=== PATIENT | male | born 2000 ===

== ENCOUNTER 2023-02-14 16:39 | Emergency (ER) | payer SELFPAY ==
[~2023-02-14] VITALS: Ht 178 cm; Wt 83.9 kg
[2023-02-14] MEDS ORDERED: NS IV 1000 ML 1,000 ML IV STA (17:08)
[2023-02-14] MEDS ORDERED: fentaNYL INJECTION 100 MCG/2 ML VIAL IVP STA (17:08)
--- NOTE | 2023-02-14 17:12 | ED Abdominal Pain ---
General Chief Complaint: Abdominal/GI Problems Stated Complaint: LOWER RT SIDE ABD PAIN Nursing Triage Note: PT AMB TO RM 3 WITH CC OF R LOWER ABD PAIN X1 WEEK. PT DENIES VOMITING AND DIARRHEA. Source of Information: Patient Exam Limitations: No Limitations (PEE SCOTT) History of Present Illness Date Seen by Provider: Feb 14, 2023 Time Seen by Provider: 17:10 Initial Comments Patient is a 22-year-old male who is speaking who presents ED with right lower quadrant abdominal pain. Pain has been ongoing and constant for the past week. Pain does not radiate. Described as sharp stabbing rates 9 out of 10. Nausea without vomiting or diarrhea. States he is having not as many frequent bowel movements. Noted the odor. Denies recent antibiotic use or bloody mucousy stools. Denies of any vomiting or diarrhea. Patient states pain intensifies when he attempts a bowel movement. Denies of any pain with urination frequent urination. No history of previous symptoms. Denies history of previous surgeries. Denies taking anything at home for pain. Denies fever, chills, chest pain, cough, shortness of breath, testicular pain or testicle swelling. (PEE SCOTT) Allergies and Home Medications Allergies Coded Allergies: No Known Drug Allergies (Unverified , 02/14/23) Patient Home Medication List Home Medication List Reviewed: Yes (PEE SCOTT) Hydrocodone/Acetaminophen (Hydrocodone-Acetamin 5-325 mg) 5 Mg-325 Mg Tablet, 1 TAB PO Q4H PRN for PAIN-MODERATE (5-7) Prescribed by: OMERO OSHEA on 02/14/23 175 Hydrocodone/Acetaminophen (Hydrocodone-Acetamin 5-325 mg) 5 Mg-325 Mg Tablet, 1 TAB PO Q4H PRN for PAIN-MODERATE (5-7) Prescribed by: OMERO OSHEA on 02/15/23 1646 Last Action: New Order Ondansetron (Ondansetron Odt) 4 Mg Tab.rapdis, 4 MG SL Q4H PRN for NAUSEA/VOMITING Prescribed by: OMERO OSHEA on 02/14/23 1757 Ondansetron (Ondansetron Odt) 4 Mg Tab.rapdis, 4 MG SL Q4H PRN for NAUSEA/V OMITING Prescribed by: OMERO OSHEA on 02/15/23 2994 Last Action: New Order Review of Systems Review of Systems Constitutional: No chills, No diaphoresis, No malaise, No weakness EENTM: No Double Vision, No Eye Pain Respiratory: Denies Cough, Denies Orthopnea Cardiovascular: Denies Chest Pain Gastrointestinal: Abdominal Pain; Denies Diarrhea; Nausea; Denies Vomiting Genitourinary: Denies Burning, Denies Discharge, Denies Drainage, Denies Frequ ency, Denies Flank Pain Musculoskeletal: No back pain Skin: No change in color, No change in hair/nails (PEE SCOTT) All Other Systems Reviewed Negative Unless Noted: Yes (PEE SCOTT) Past Keukfmf-Upascz-Gighqh Hx Patient Social History Tobacco Use?: No Substance use?: No Alcohol Use?: No (PEE SCOTT) Past Medical History Surgery/Hospitalization HX: DENIES (PEE SCOTT) Physical Exam Vital Signs Vital Signs - First Documented 02/14/23 17:00 Temp 36.8 Pulse 52 Resp 16 B/P (MAP) 141/80 (100) Pulse Ox 100 O2 Delivery Room Air (SERGIO GRADY MD) Vital Signs Capillary Refill : Less Than 3 Seconds (PEE SCOTT) Height/Weight/BMI Height: '" Weight: lbs. oz. kg; 26.00 BMI Method: General Appearance: WD/WN, no apparent distress HEENT: PERRL/EOMI, normal ENT inspection, TMs normal, pharynx normal Neck: non-tender, full range of motion, supple Respiratory: chest non-tender, lungs clear, normal breath sounds, no respiratory distress, no accessory muscle use Cardiovascular: regular rate, rhythm, no edema, no gallop, no JVD Gastrointestinal: normal bowel sounds, soft, no pulsatile mass, tenderness (Right lower quadrant tenderness.) Extremities: normal range of motion, non-tender, normal inspection, no pedal edema Back: normal inspection, no CVA tenderness, no vertebral tenderness Neurologic/Psychiatric: yarn tester II-XII nml as tested, no motor/sensory deficits, alert, normal mood/affect, oriented x 3 Skin: normal color, warm/dry (PEE SCOTT) Progress/Results/Core Measures Results/Orders Lab Results Laboratory Tests Test 02/14/23 17:15 02/14/23 17:53 Range/Units White Blood Count 14.2 H 4.3-11.0 10^3/uL Red Blood Count 5.88 H 4.30-5.52 10^6/uL Hemoglobin 17.3 13.3-17.7 g/dL Hematocrit 52 40-54 % Mean Corpuscular Volume 88 80-99 fL Mean Corpuscular Hemoglobin 29 25-34 pg Mean Corpuscular Hemoglobin Concent 34 32-36 g/dL Red Cell Distribution Width 13.1 10.0-14.5 % Platelet Count 265 130-400 10^3/uL Mean Platelet Volume 11.9 9.0-12.2 fL Immature Granulocyte % (Auto) 1 % Neutrophils (%) (Auto) 76 H 42-75 % Lymphocytes (%) (Auto) 14 12-44 % Monocytes (%) (Auto) 9 0-12 % Eosinophils (%) (Auto) 1 0-10 % Basophils (%) (Auto) 0 0-10 % Neutrophils # (Auto) 10.8 H 1.8-7.8 10^3/uL Lymphocytes # (Auto) 2.0 1.0-4.0 10^3/uL Monocytes # (Auto) 1.3 H 0.0-1.0 10^3/uL Eosinophils # (Auto) 0.1 0.0-0.3 10^3/uL Basophils # (Auto) 0.0 0.0-0.1 10^3/uL Immature Granulocyte # (Auto) 0.1 0.0-0.1 10^3/uL Neutrophils % (Manual) 88 % Lymphocytes % (Manual) 8 % Monocytes % (Manual) 3 % Eosinophils % (Manual) 1 % Blood Morphology Comment NORMAL Sodium Level 137 135-145 MMOL/L Potassium Level 4.0 3.6-5.0 MMOL/L Chloride Level 106 98-107 MMOL/L Carbon Dioxide Level 20 L 21-32 MMOL/L Anion Gap 11 5-14 MMOL/L Blood Urea Nitrogen 12 7-18 MG/DL Creatinine 0.87 0.60-1.30 MG/DL Estimat Glomerular Filtration Rate 125 BUN/Creatinine Ratio 14 Glucose Level 96 70-105 MG/DL Calcium Level 9.1 8.5-10.1 MG/DL Corrected Calcium 8.8 8.5-10.1 MG/DL Total Bilirubin 0.8 0.1-1.0 MG/DL Aspartate Amino Transf (AST/SGOT) 48 H 5-34 U/L Alanine Aminotransferase (ALT/SGPT) 122 H 0-55 U/L Alkaline Phosphatase 90 40-136 U/L Total Protein 7.2 6.4-8.2 GM/DL Albumin 4.4 3.2-4.5 GM/DL Lipase 16 8-78 U/L Urine Color YELLOW Urine Clarity CLEAR Urine pH 6.0 5-9 Urine Specific [place] 1.025 H 1.016-1.022 Urine Protein NEGATIVE NEGATIVE Urine Glucose (UA) NEGATIVE NEGATIVE Urine Ketones NEGATIVE NEGATIVE Urine Nitrite NEGATIVE NEGATIVE Urine Bilirubin NEGATIVE NEGATIVE Urine Urobilinogen 0.2 < = 1.0 MG/DL Urine Leukocyte Esterase NEGATIVE NEGATIVE Urine RBC (Auto) TRACE H NEGATIVE Urine RBC NONE /HPF Urine WBC NONE /HPF Urine Squamous Epithelial Cells RARE /HPF Urine Crystals NONE /LPF Urine Bacteria NEGATIVE /HPF Urine Casts NONE /LPF Urine Mucus NEGATIVE /LPF Urine Culture Indicated NO (SERGIO GRADY MD) Vital Signs/I&O 02/14/23 02/14/23 17:00 19:06 Temp 36.8 Pulse 52 54 Resp 16 16 B/P (MAP) 141/80 (100) 140/83 Pulse Ox 100 99 O2 Delivery Room Air Room Air (SERGIO GRADY MD) Blood Pressure Mean: 100 Departure Communication (PCP) Differential diagnosis, appendicitis, colitis, urolithiasis, cystitis. Not concern for sexual transmitted infections. No penile discharge, bloody urine or frequent urination. Tenderness to right lower quadrant continuous pain for the past week. Afebrile no vomiting or diarrhea. Denies any specific injury. Does lift heavy objects. No palpable hernia. Patient without any testicle pain or testicle swelling. Urinalysis did showed trace red blood cells. White blood count 14. Chemistry grossly unremarkable besides slight elevated AST and ALT 48 and 122 respectively. Patient received fentanyl and Toradol with improvement of pain. Was given a liter of fluid Zofran. CT abdomen pelvis shows no acute abnormality in the abdomen or pelvis. Nonobstructing 0.6 cm right renal calculus without hydronephrosis. Potentially could be causing patient pain or more muscular. Denies of any hard stools. Denies history of constipation. Since patient's pain is improving at this time will discharge with strict return precautions. Discharged with few days worth of pain medication and Zofran for nausea. Recommend follow-up with your PCP in 2 to 3 days for reevaluation. Recommend stretching the abdominal wall. Recommend staying hydrated. If any worsening symptoms such as fever, severe pain to return back to ED. Does not appear to be surgical at this time. Patient has no other complaints. (PEE SCOTT) Impression Primary Impression: Nephrolithiasis Disposition: HOME, SELF-CARE Condition: Stable Departure-Patient Inst. Decision time for Depature: 17:55 (PEE SCOTT) Referrals: [facility] [place] Patient Instructions: Kidney Stone, Adult ED Add. Discharge Instructions: Recommend rest, drink plenty of fluids, Zofran for nausea. Take pain medication as needed. Recommend taking a laxative with the hydrocodone. All discharge instructions reviewed with patient and/or family. Voiced understanding. Scripts Hydrocodone/Acetaminophen (Hydrocodone-Acetamin 5-325 mg) 5 Mg-325 Mg Tablet 1 TAB PO Q4H PRN for PAIN-MODERATE (5-7), #8 TAB Prov: PEE SCOTT 02/15/23 Ondansetron (Ondansetron Odt) 4 Mg Tab.rapdis 4 MG SL Q4H PRN for NAUSEA/VOMITING, #6 TAB Prov: PEE SCOTT 02/15/23 Hydrocodone/Acetaminophen (Hydrocodone-Acetamin 5-325 mg) 5 Mg-325 Mg Tablet 1 TAB PO Q4H PRN for PAIN-MODERATE (5-7), #8 TAB Prov: PEE SCOTT 02/14/23 Ondansetron (Ondansetron Odt) 4 Mg Tab.rapdis 4 MG SL Q4H PRN for NAUSEA/VOMITING, #8 TAB Prov: PEE SCOTT 02/14/23 Work/School Note: Work Release Form Date Seen in the Emergency Department: Feb 14, 2023 Return to Work: Feb 17, 2023 ATTENDING PHYSICIAN NOTE: I was physically present as attending physician in the emergency department during the care of this patient, but I was not directly involved in the decision making or delivery of care for this patient. (SERGIO GRADY MD) PEE SCOTT Feb 14, 2023 17:12 SERGIO GRADY MD Feb 15, 2023 18:52
[2023-02-14 17:30] LABS: BASOPHILS % (AUTO) 0 % (0-10); EOSINOPHILS # (AUTO) 0.1 10^3/uL (0.0-0.3); EOSINOPHILS % (AUTO) 1 % (0-10); HEMATOCRIT 52 % (40-54); HEMOGLOBIN 17.3 g/dL (13.3-17.7); LYMPHOCYTES % (AUTO) 14 % (12-44); MEAN CORPUSCULAR HEMOGLOBIN 29 pg (25-34); MEAN CORPUSCULAR HGB CONC 34 g/dL (32-36); MEAN CORPUSCULAR VOLUME 88 fL (80-99); MEAN PLATELET VOLUME 11.9 fL (9.0-12.2); MONOCYTES # (AUTO) 1.3 10^3/uL (0.0-1.0); MONOCYTES % (AUTO) 9 % (0-12); NEUTROPHILS # (AUTO) 10.8 10^3/uL (1.8-7.8); NEUTROPHILS % (AUTO) 76 % (42-75); PLATELET COUNT 265 10^3/uL (130-400); WHITE BLOOD COUNT 14.2 10^3/uL (4.3-11.0)
[2023-02-14] MEDS ORDERED: HOLD METFORMIN - RECEIVED CONTRAST 20 ML VIAL IV SCH (17:30)
[2023-02-14] MEDS ORDERED: NS 100 ML (IVPB) BAG IV ONE (17:30)
[2023-02-14] MEDS ORDERED: IOHEXOL 350 MG/ML 100 ML (OMNIPAQUE 350) VIAL IV ONE (17:30)
[2023-02-14 17:37] LABS: ALBUMIN 4.4 GM/DL (3.2-4.5)
[2023-02-14 17:39] LABS: CALCIUM 9.1 MG/DL (8.5-10.1)
[2023-02-14 17:40] LABS: TOTAL PROTEIN 7.2 GM/DL (6.4-8.2)
[2023-02-14 17:42] LABS: BILIRUBIN,TOTAL 0.8 MG/DL (0.1-1.0)
--- NOTE | 2023-02-14 17:43 | Diagnostic Imaging Report ---
EXAMINATION: CT abdomen and pelvis with intravenous contrast. TECHNIQUE: Multiple contiguous axial images were obtained through the abdomen and pelvis after the uneventful administration of intravenous contrast. All CT scans use one or more of the following dose optimizing techniques: automated exposure control, MA and/or KvP adjustment based on patient size and exam type or iterative reconstruction. HISTORY: rlq abd pain COMPARISON: None available. FINDINGS: Lung bases: The lung bases are clear. Solid organs: The liver is normal without focal lesion. The gallbladder is normal. There is no biliary ductal dilation. Pancreas is normal. Spleen is normal. Adrenal glands are normal. There is a nonobstructing 0.6 cm right renal calculus. No hydronephrosis. Bowel: The stomach and small bowel are normal without obstruction. The colon is normal. The appendix is normal. Peritoneum: There is no intraperitoneal free fluid or free air. No suspicious lymphadenopathy. Vasculature: Normal without aneurysm. Musculoskeletal: No suspicious osseous lesion or compression fracture. Pelvis: The prostate gland is normal. The urinary bladder is normal. IMPRESSION: 1. No acute abnormality in the abdomen or pelvis. 2. A nonobstructing 0.6 cm right renal calculus without hydronephrosis. Dictated by: Dictated on workstation # [id number]
[2023-02-14 17:44] LABS: CREATININE SERUM 0.87 MG/DL (0.60-1.30)
[2023-02-14] MEDS ORDERED: ONDA4TAB11 SL (17:57)
[2023-02-14] MEDS ORDERED: ACHD5005 PO (17:57)
[2023-02-14 18:09] LABS: BACTERIA,URINE NEGATIVE /HPF; BILIRUBIN,URINE NEGATIVE (NEGATIVE); CLARITY,URINE CLEAR; COLOR,URINE YELLOW; GLUCOSE, URINE (UA) NEGATIVE (NEGATIVE); KETONES,URINE NEGATIVE (NEGATIVE); LEUKOCYTE ESTERASE ,URINE NEGATIVE (NEGATIVE); NITRITE,URINE NEGATIVE (NEGATIVE); PROTEIN,URINE NEGATIVE (NEGATIVE); SQUAMOUS EPITHELIAL CELL,UR RARE /HPF
[2023-02-14 18:15] LABS: EOSINOPHILS % (MANUAL) 1 %; LYMPHOCYTES % (MANUAL) 8 %; MONOCYTES % (MANUAL) 3 %; NEUTROPHILS % (MANUAL) 88 %; RBC MORPH NORMAL
[2023-02-14] MEDS ORDERED: KETOROLAC INJ 30 MG/ML VIAL IVP ONE (19:00)
[2023-02-14 19:06] VITALS: BP 140/83
[2023-02-15] MEDS ORDERED: ACHD5005 PO (16:45)
[2023-02-15] MEDS ORDERED: ONDA4TAB11 SL (16:45)
== END 2023-02-14 19:06 | disposition home or self-care (01) ==
LOC: ER 16:48
DX: N20.0 Calculus of kidney (principal)
CPT/HCPCS: 36415; 74177; 80053; 81000; 83690; 85007; 85027

== ENCOUNTER 2023-04-08 12:29 | Emergency (ER) | payer SELFPAY ==
[~2023-04-08] VITALS: Ht 178 cm; Wt 81.6 kg
[~2023-04-08 12:29] MED LIST: ACHD5005 PO; ONDA4TAB11 SL
--- NOTE | 2023-04-08 12:58 | ED Abdominal Pain ---
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 At that time he was diagnosed with a kidney stone. He reports that he has been vomiting approximately 4 times a day since then. He reports a small amount of bright red blood in his vomit. Also reports that he has had black stools since December. He reports that he has a small bowel movement every day. He reports that his stools have been loose. He states that he feels as though he has not had a normal bowel movement since December. He reports he has had fevers, highest was 100.2. States that he has been taking Tylenol for the fever. Reports that he has not been eating as well. He denies dysuria. He denies taking ibuprofen or aspirin. Denies alcohol use. Denies taking Pepto-Bismol. He reports that he has been having muscle cramping in bilateral lower extremities. Allergies and Home Medications Allergies Coded Allergies: No Known Drug Allergies (Unverified , 02/14/23) Patient Home Medication List Home Medication List Reviewed: Yes Amoxicillin/Potassium Clav (Amox Tr-K Clv 875-125 mg Tab) 875 Mg-125 Mg Tablet, 1 EACH PO BID Prescribed by: Helen Steven on 04/08/23 1442 Hydrocodone/Acetaminophen (Hydrocodone-Acetamin 5-325 mg) 5 Mg-325 Mg Tablet, 1 TAB PO Q4H PRN for PAIN-MODERATE (5-7) Prescribed by: OMERO OSHEA on 02/14/23 1757 Hydrocodone/Acetaminophen (Hydrocodone-Acetamin 5-325 mg) 5 Mg-325 Mg Tablet, 1 TAB PO Q4H PRN for PAIN-MODERATE (5-7) Prescribed by: OMERO OSHEA on 02/15/23 1646 Ondansetron (Ondansetron Odt) 4 Mg Tab.rapdis, 4 MG SL Q4H PRN for NAUSEA/VOMITING Prescribed by: OMERO OSHEA on 02/14/23 175 Ondansetron (Ondansetron Odt) 4 Mg Tab.rapdis, 4 MG SL Q4H PRN for NAUSEA /VOMITING Prescribed by: OMERO OSHEA on 02/15/23 1645 Ondansetron (Ondansetron Odt) 4 Mg Tab.rapdis, 4 MG SL Q4H PRN for NAUSEA/VOMITING Prescribed by: Helen Steven on 04/08/23 1442 Tramadol HCl (Tramadol HCl) 50 Mg Tablet, 50 MG PO Q6H Prescribed by: Helen Steven on 04/08/23 1442 Review of Systems Review of Systems Constitutional: see HPI Past Evtlrdq-Dzalwd-Wzsudo Hx Past Medical History Surgery/Hospitalization HX: DENIES Physical Exam Vital Signs Vital Signs - First Documented 04/08/23 12:38 Temp 37.0 Pulse 65 Resp 20 B/P (MAP) 140/80 (100) Pulse Ox 99 O2 Delivery Nasal Cannula Capillary Refill : Height/Weight/BMI Height: '" Weight: lbs. oz. kg; 26.00 BMI Method: General Appearance: WD/WN, no apparent distress Neck: supple, normal inspection Respiratory: lungs clear, normal breath sounds, no respiratory distress, no accessory muscle use Cardiovascular: regular rate, rhythm Gastrointestinal: normal bowel sounds, soft; No guarding, No rebound; tenderness (Left lower quadrant) Rectal: normal exam, normal rectal tone; No hemorrhoids Extremities: normal range of motion, normal inspection Back: CVA tenderness (R), CVA tenderness (L) Neurologic/Psychiatric: alert, normal mood/affect Skin: normal color, warm/dry Progress/Results/Core Measures Results/Orders Lab Results Laboratory Tests Test 04/08/23 12:57 04/08/23 13:00 Range/Units White Blood Count 9.6 4.3-11.0 10^3/uL Red Blood Count 6.03 H 4.30-5.52 10^6/uL Hemoglobin 17.5 13.3-17.7 g/dL Hematocrit 52 40-54 % Mean Corpuscular Volume 86 80-99 fL Mean Corpuscular Hemoglobin 29 25-34 pg Mean Corpuscular Hemoglobin Concent 34 32-36 g/dL Red Cell Distribution Width 12.4 10.0-14.5 % Platelet Count 276 130-400 10^3/uL Mean Platelet Volume 12.0 9.0-12.2 fL Immature Granulocyte % (Auto) 0 % Neutrophils (%) (Auto) 69 42-75 % Lymphocytes (%) (Auto) 19 12-44 % Monocytes (%) (Auto) 9 0-12 % Eosinophils (%) (Auto) 3 0-10 % Basophils (%) (Auto) 0 0-10 % Neutrophils # (Auto) 6.6 1.8-7.8 10^3/uL Lymphocytes # (Auto) 1.8 1.0-4.0 10^3/uL Monocytes # (Auto) 0.8 0.0-1.0 10^3/uL Eosinophils # (Auto) 0.3 0.0-0.3 10^3/uL Basophils # (Auto) 0.0 0.0-0.1 10^3/uL Immature Granulocyte # (Auto) 0.0 0.0-0.1 10^3/uL Sodium Level 137 135-145 MMOL/L Potassium Level 3.7 3.6-5.0 MMOL/L Chloride Level 105 98-107 MMOL/L Carbon Dioxide Level 22 21-32 MMOL/L Anion Gap 10 5-14 MMOL/L Blood Urea Nitrogen 8 7-18 MG/DL Creatinine 0.86 0.60-1.30 MG/DL Estimat Glomerular Filtration Rate 126 BUN/Creatinine Ratio 9 Glucose Level 109 H 70-105 MG/DL Calcium Level 9.7 8.5-10.1 MG/DL Corrected Calcium 8.5-10.1 MG/DL Total Bilirubin 1.2 H 0.1-1.0 MG/DL Aspartate Amino Transf (AST/SGOT) 24 5-34 U/L Alanine Aminotransferase (ALT/SGPT) 56 H 0-55 U/L Alkaline Phosphatase 70 40-136 U/L Total Protein 7.6 6.4-8.2 GM/DL Albumin 4.7 H 3.2-4.5 GM/DL Lipase 18 8-78 U/L Serum Alcohol < 10 <10 MG/DL Urine Color YELLOW Urine Clarity CLEAR Urine pH 6.5 5-9 Urine Specific [place] 1.010 L 1.016-1.022 Urine Protein NEGATIVE NEGATIVE Urine Glucose (UA) NEGATIVE NEGATIVE Urine Ketones NEGATIVE NEGATIVE Urine Nitrite NEGATIVE NEGATIVE Urine Bilirubin NEGATIVE NEGATIVE Urine Urobilinogen 0.2 < = 1.0 MG/DL Urine Leukocyte Esterase NEGATIVE NEGATIVE Urine RBC (Auto) TRACE H NEGATIVE Urine RBC RARE /HPF Urine WBC NONE /HPF Urine Crystals NONE /LPF Urine Calcium Oxalate Crystals /LPF Urine Bacteria NEGATIVE /HPF Urine Casts NONE /LPF Urine Mucus NEGATIVE /LPF Urine Culture Indicated NO Urine Opiates Screen NEGATIVE NEGATIVE Urine Oxycodone Screen NEGATIVE NEGATIVE Urine Methadone Screen NEGATIVE NEGATIVE Urine Barbiturates Screen NEGATIVE NEGATIVE Ur Tricyclic Antidepressants Screen NEGATIVE NEGATIVE Urine Phencyclidine Screen NEGATIVE NEGATIVE Urine Amphetamines Screen NEGATIVE NEGATIVE Urine Methamphetamines Screen NEGATIVE NEGATIVE Urine Benzodiazepines Screen NEGATIVE NEGATIVE Urine Cocaine Screen NEGATIVE NEGATIVE Urine Cannabinoids Screen NEGATIVE NEGATIVE My Orders Orders - HELEN ALEXANDER R EXPLOSIVE OPERATOR FUSE Ua Culture If Indicated (04/08/23 12:35) Comprehensive Metabolic Panel (04/08/23 12:50) Lipase (04/08/23 12:50) Ed Iv/Invasive Line Start (04/08/23 12:50) Cbc And Automated Diff (04/08/23 12:50) Lactated Ringers 1,000 Ml (Lactated Ring (04/08/23 13:00) Fentanyl Injection (Fentanyl Injection (04/08/23 13:00) Fecal Occult Bedside (04/08/23 12:50) Ondansetron Injection (Ondansetron Inj (04/08/23 13:15) Drug Screen Stat (Urine) (04/08/23 13:02) Alcohol (04/08/23 13:02) Ct Abdomen/Pelvis W (04/08/23 13:11) Iohexol Injection (Omnipaque 350 Mg/Ml 1 (04/08/23 13:30) Received Contrast (Hold Metformin- Contr (04/08/23 13:30) Ns (Ivpb) 100 Ml (Sodium Chloride 0.9% 1 (04/08/23 13:30) Fentanyl Injection (Fentanyl Injection (04/08/23 14:30) Amoxicillin/Clavulanate Tablet (Amoxicil (04/08/23 14:30) Medications Given in ED Current Medications Medications Dose Ordered Sig/Amalia Route Start Time Stop Time Status Last Admin Dose Admin Amoxicillin/ Clavulanate Potassium 875 mg ONCE ONCE PO 04/08/23 14:30 04/08/23 14:32 DC 04/08/23 14:45 875 MG Fentanyl Citrate 50 mcg ONCE ONCE IVP 04/08/23 13:00 04/08/23 13:01 DC 04/08/23 13:26 50 MCG Fentanyl Citrate 75 mcg ONCE ONCE IVP 04/08/23 14:30 04/08/23 14:32 DC 04/08/23 14:45 75 MCG Iohexol 100 ml ONCE ONCE IV 04/08/23 13:30 04/08/23 13:31 DC 04/08/23 13:39 80 ML Lactated Ringer's 1,000 ml @ 0 mls/hr Q0M ONCE IV 04/08/23 13:00 04/08/23 13:01 DC 04/08/23 13:25 0 MLS/HR Ondansetron HCl 4 mg ONCE ONCE IVP 04/08/23 13:15 04/08/23 13:16 DC 04/08/23 13:26 4 MG Sodium Chloride 100 ml ONCE ONCE IV 04/08/23 13:30 04/08/23 13:31 DC 04/08/23 13:39 80 ML Vital Signs/I&O 04/08/23 12:38 Temp 37.0 Pulse 65 Resp 20 B/P (MAP) 140/80 (100) Pulse Ox 99 O2 Delivery Nasal Cannula Progress Progress Note : Progress Note Patient seen and evaluated, resting comfortably in bed, no acute distress. Based on exam and symptoms, workup initiated including CBC, CMP, lipase, UA, fecal occult. Lactated Ringer's, fentanyl, and Zofran ordered. Digital rectal exam performed, no internal or external hemorrhoids noted, was unable to obtain a stool sample. Patient went to the restroom to try to have a bowel movement. He was unable to have a bowel movement, but when he wiped there was a small amount of bright red blood, and green-colored stool. [address] reviewed. CBC shows elevated RBC 6.03, otherwise grossly normal. CMP shows slightly elevated total bilirubin of 1.2, slightly elevated ALT 56, this is improved from previous labs. Albumin slightly elevated 4.7. Lipase normal. Urinalysis shows trace RBCs, negative for infection. Urine drug screen negative. Alcohol level negative. CT abdomen pelvis shows decompressed appearance of wall thickening of rectum all the way to the splenic flexure, this may be related to contraction but could also be colitis. Few loops of prominent jejunum overlying the left abdomen with fecalization. Slightly increased compar ed to prior study. Localized ileus cannot be excluded, early small bowel obstruction is less likely. There are findings of mesenteric adenitis. Also noted is low-density throughout the liver which could be fatty infiltrate. Results discussed with patient. Symptoms could be related to colitis or mesenteric adenitis. Will discharge with prescription for Augmentin, Zofran, and pain medication. Patient requesting more pain medication at this time. Fentanyl has been ordered. First dose of Augmentin has also been ordered. Patient instructed to follow-up with Dr. Donaldson due to blood in stool. Patient is stable for discharge. Discharge instructions and return precautions provided. Departure Impression Primary Impression: Mesenteric adenitis Additional Impression: Colitis Disposition: 01 HOME, SELF-CARE Condition: Stable Departure-Patient Inst. Decision time for Depature: 14:36 Referrals: VEDA DONALDSON DO Patient Instructions: Colitis (DC) Add. Discharge Instructions: Complete el tratamiento completo de Augmentin segn lo prescrito, no deje de tomarlo incluso si comienza a sentirse mejor. [place] ondansetrn cada 4 horas segn sea necesario para las nuseas y los vmitos. Colcalo debajo de tu lengua y eva que se disuelva. Puede causar estreimiento. Tmalo slo cuando lo necesites. [place] tramadol cada 6 horas segn sea necesario para el dolor. Puede que le d sueo. Tambin puede causar estreimiento. Tmalo slo cuando sea necesario. Tambin puede naif Tylenol 1000 mg cada 8 horas segn sea necesario para el dolor. Seguimiento con el odalys [place], con respecto a la liza en las heces. Llame a barnes oficina el lunes para programar roshan ab de seguimiento. Tambin renetta un seguimiento con barnes proveedor de atencin primaria. Regrese si presenta cualquier sntoma nuevo, preocupante o que empeore. Complete full course of Augmentin as prescribed, do not stop taking it even if you begin to feel better. Take ondansetron every 4 hours as needed for nausea and vomiting. Place it under your tongue and let it dissolve. It may cause constipation. Only take it when you need it. Take tramadol every 6 hours as needed for pain. It may make you sleepy. It may also cause constipation. Only take it when needed. You may also take Tylenol 1000 mg every 8 hours as needed for pain. Follow-up with Dr. Donaldson, surgery, regarding the blood in your stool. Call his office on Monday to schedule a follow-up appointment. Follow-up with your primary care provider as well. Return for any new, concerning, or worsening symptoms. Scripts Tramadol HCl (Tramadol HCl) 50 Mg Tablet 50 MG PO Q6H, #15 TAB 0 Refills Prov: HELEN ALEXANDER APRN 04/08/23 Ondansetron (Ondansetron Odt) 4 Mg Tab.rapdis 4 MG SL Q4H PRN for NAUSEA/VOMITING, #15 TAB 0 Refills Prov: HELEN ALEXANDER APRN 04/08/23 Amoxicillin/Potassium Clav (Amox Tr-K Clv 875-125 mg Tab) 875 Mg-125 Mg Tablet 1 EACH PO BID for 10 Days, #19 TAB 0 Refills Prov: HELEN ALEXANDER APRN 04/08/23 Copy Copies To 1: [facility]/HELEN BAHENA APRN Apr 08, 2023 12:58
[2023-04-08] MEDS ORDERED: fentaNYL INJECTION 100 MCG/2 ML VIAL IVP ONE ×2 (13:00→14:30)
[2023-04-08] MEDS ORDERED: LACTATED RINGERS 1,000 ML 1,000 ML IV ONE (13:00)
[2023-04-08 13:04] LABS: BASOPHILS % (AUTO) 0 % (0-10); EOSINOPHILS # (AUTO) 0.3 10^3/uL (0.0-0.3); EOSINOPHILS % (AUTO) 3 % (0-10); HEMATOCRIT 52 % (40-54); HEMOGLOBIN 17.5 g/dL (13.3-17.7); LYMPHOCYTES # (AUTO) 1.8 10^3/uL (1.0-4.0); LYMPHOCYTES % (AUTO) 19 % (12-44); MEAN CORPUSCULAR HEMOGLOBIN 29 pg (25-34); MEAN CORPUSCULAR HGB CONC 34 g/dL (32-36); MEAN CORPUSCULAR VOLUME 86 fL (80-99); MONOCYTES # (AUTO) 0.8 10^3/uL (0.0-1.0); MONOCYTES % (AUTO) 9 % (0-12); NEUTROPHILS # (AUTO) 6.6 10^3/uL (1.8-7.8); NEUTROPHILS % (AUTO) 69 % (42-75); PLATELET COUNT 276 10^3/uL (130-400); WHITE BLOOD COUNT 9.6 10^3/uL (4.3-11.0)
[2023-04-08] MEDS ORDERED: ONDANSETRON INJECTION 4 MG/2 ML (SDV) IVP ONE (13:15)
[2023-04-08 13:16] LABS: ALBUMIN 4.7 GM/DL (3.2-4.5); CHLORIDE 105 MMOL/L (98-107); POTASSIUM 3.7 MMOL/L (3.6-5.0); SODIUM 137 MMOL/L (135-145)
[2023-04-08 13:17] LABS: CALCIUM 9.7 MG/DL (8.5-10.1)
[2023-04-08 13:18] LABS: GLUCOSE 109 MG/DL (70-105); TOTAL PROTEIN 7.6 GM/DL (6.4-8.2)
[2023-04-08 13:19] LABS: CARBON DIOXIDE 22 MMOL/L (21-32)
[2023-04-08 13:20] LABS: BILIRUBIN,TOTAL 1.2 MG/DL (0.1-1.0)
[2023-04-08 13:22] LABS: ALKALINE PHOSPHATASE 70 U/L (40-136); CREATININE SERUM 0.86 MG/DL (0.60-1.30); GFR ESTIMATED 126
[2023-04-08 13:23] LABS: BUN/CREATININE RATIO 9
[2023-04-08 13:25] LABS: AMPHETAMINE SCREEN, URINE NEGATIVE (NEGATIVE); BARBITURATE SCREEN URINE NEGATIVE (NEGATIVE); CANNABINOID SCREEN, URINE NEGATIVE (NEGATIVE); CLARITY,URINE CLEAR; COCAINE SCREEN URINE NEGATIVE (NEGATIVE); COLOR,URINE YELLOW; GLUCOSE, URINE (UA) NEGATIVE (NEGATIVE); KETONES,URINE NEGATIVE (NEGATIVE); METHADONE STAT NEGATIVE (NEGATIVE); OPIATE SCREEN URINE NEGATIVE (NEGATIVE); OXYCODONE STAT NEGATIVE (NEGATIVE); PH,URINE 6.5 (5-9); PROTEIN,URINE NEGATIVE (NEGATIVE); TRICYCLIC ANTIDEPRESSANTS SCRE NEGATIVE (NEGATIVE)
[2023-04-08 13:25] LABS: ALANINE AMINOTRANSFERASE 56 U/L (0-55); LIPASE 18 U/L (8-78)
[2023-04-08 13:26] LABS: BACTERIA,URINE NEGATIVE /HPF; BILIRUBIN,URINE NEGATIVE (NEGATIVE); LEUKOCYTE ESTERASE ,URINE NEGATIVE (NEGATIVE); NITRITE,URINE NEGATIVE (NEGATIVE); RBC,URINE RARE /HPF
[2023-04-08] MEDS ORDERED: IOHEXOL 350 MG/ML 100 ML (OMNIPAQUE 350) VIAL IV ONE (13:30)
[2023-04-08] MEDS ORDERED: HOLD METFORMIN - RECEIVED CONTRAST 20 ML VIAL IV SCH (13:30)
[2023-04-08] MEDS ORDERED: NS 100 ML (IVPB) BAG IV ONE (13:30)
--- NOTE | 2023-04-08 13:57 | Diagnostic Imaging Report ---
CLINICAL INDICATION: Patient complains of left lower quadrant abdominal pain. EXAM: Axial CT scan of the abdomen and pelvis performed with 80 cc of Omnipaque 350 IV contrast. Sagittal and coronal reformatted images were created. Auto Exposure Controls were utilized during the CT exam to meet ALARA standards for radiation dose reduction. COMPARISON: CT scan of the abdomen and pelvis with contrast dated 02/14/2023. FINDINGS: The lung bases are clear. The visualized bony structures are unremarkable. Again seen is diffuse low-density throughout the liver which may be related to diffuse fatty infiltration. The liver is otherwise unremarkable. The spleen, pancreas, gallbladder, and adrenal glands are unremarkable. There is no intrahepatic or extrahepatic ductal dilation. There is a 7 mm nonobstructive stone involving the right kidney. Both kidneys are otherwise unremarkable. There is no hydronephrosis. There are no stones in the ureters. The bladder is fluid-filled and otherwise unremarkable. The prostate gland is unremarkable. The appendix is unremarkable. There is wall thickening and a decompressed appearance of the left splenic flexure, descending colon, sigmoid colon, and rectum which is nonspecific. There is no intestinal obstruction. There is fecalization seen involving some mildly distended loops of jejunum overlying the left abdomen measuring up to 2.7 cm in width. The intestines distal to this area are smaller in caliber. Patient was also noted to have minimally distended jejunum in this area on the prior CT but not as much as today's exam. There is no intra-abdominal free air or free fluid. There are multiple mesenteric and pericecal lymph nodes which are subcentimeter in short axis. The extraabdominal and extrapelvic soft tissue structures are unremarkable. IMPRESSION: 1: There is a decompressed appearance of wall thickening seen from the rectum all the way to the splenic flexure. This may be related to contraction but colitis could not be completely excluded. 2: There are a few loops of prominent jejunum overlying the left abdomen with fecalization. This appearance is slightly increased compared to the prior study. A localized ileus could not be excluded. An early small bowel obstruction may be less likely. Serial x-rays of the abdomen may help better evaluate for interval change. 3: There are findings which can be seen with mesenteric adenitis. 4: Again seen is diffuse low-density throughout the liver, concerning for fatty infiltration. Dictated by: Dictated on workstation # [id number]
[2023-04-08] MEDS ORDERED: AMOXICILLIN/Clavulanate 875 MG TABLET PO ONE (14:30)
[2023-04-08] MEDS ORDERED: TRAM50TA3 PO (14:42)
[2023-04-08] MEDS ORDERED: AMOX1TAB12 PO (14:42)
[2023-04-08] MEDS ORDERED: ONDA4TAB11 SL (14:42)
[2023-04-08 15:10] VITALS: BP 122/64
== END 2023-04-08 15:15 | disposition home or self-care (01) ==
LOC: EDUNIT# 12:29 → ER 12:31
DX: I88.0 Nonspecific mesenteric lymphadenitis (principal); K52.9 Noninfective gastroenteritis and colitis, unspecified
CPT/HCPCS: 74177; 80053; 80306; 81000; 82274; 83690; 85025; 99284; G0480; 36415; 80320

== ENCOUNTER 2023-04-14 17:39 | Emergency (ER) | payer SELFPAY ==
[~2023-04-14] VITALS: Ht 172.7 cm; Wt 80.0 kg
[~2023-04-14 17:39] MED LIST changes: +AMOX1TAB12 PO; +TRAM50TA3 PO
--- NOTE | 2023-04-14 18:13 | ED Abdominal Pain ---
General Chief Complaint: Abdominal/GI Problems Stated Complaint: VOMITTING, INFECTION Nursing Triage Note: PATIENT C/O ABD. PAIN WITH VOMITING THAT STARTED 2 MTHS AGO. PATIENT STATES HIS PAIN HAS GOTTEN WORSE AND STATES THE PAIN INCREASED 3 DAYS AGO. PATIENT DENIES ANY BLOOD IN HIS STOOL. PATIENT STATES HE HAS AN APT. WITH DR. DONALDSON THIS COMING MONDAY. PATIENT STATES HE WAS SEEN HERE FOR THIS COMPLAINT AND WAS DX. WITH COLITIS AND MESENTERIC ADENITIS. PATIENT STATES HE COMPLETED HIS PRESCRIBED ANTIBIOTICS. 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 NO BLOOD IN STOOLS. NO STOOL TODAY, PASSED SOME MUCOUS-Y STOOL YESTERDAY HAS HAD SUBJECTIVE FEVER HAS HAD DECREASED URINE OUTPUT THE LAST 2 DAYS, VOIDED X 3 TODAY, BUT SMALL AMOUNTS HAS HAD SOME WATER TODAY, NO FOOD. HAD A LITTLE BIT OF FOOD YESTERDAY, BUT EATING CAUSES INCREASED PAIN HAS NOT BEEN ABLE TO SLEEP THE LAST 2 NIGHTS BECAUSE OF PAIN SEEN HERE 04/08/23 FOR THIS PROBLEM, DX WITH COLITIS AND MESENTERIC ADENITIS AND PRESCRIBED AUGMENTIN, ZOFRAN AND TRAMADOL HE IS OUT OF ALL MEDICATIONS HE HAS AN APPOINTMENT WITH DR. DONALDSON ON Monday04/18/23 FOR THIS PROBLEM SEEN HERE 02/14/23 FOR LLQ PAIN, CT SCAN SHOWED RIGHT INTRARENAL CALCULUS, OTHERWISE NO ABNORMAL FINDINGS ON CT OR IN LAB AT THAT TIME. NO PRIOR ABDOMINAL SURGERIES OR GI PROBLEMS NO MEDICAL PROBLEMS OR DAILY MEDICATIONS NO SMOKING, ALCOHOL OR DRUG USE NO RECENT TRAVEL, NO SUSPICIOUS FOODS PCP: NONE Allergies and Home Medications Allergies Coded Allergies: No Known Drug Allergies (Unverified , 02/14/23) Patient Home Medication List Home Medication List Reviewed: Yes Amoxicillin/Potassium Clav (Amox Tr-K Clv 875-125 mg Tab) 875 Mg-125 Mg Tablet, 1 EACH PO BID Prescribed by: Helen Steven on 04/08/23 1442 Ciprofloxacin HCl (Ciprofloxacin HCl) 500 Mg Tablet, 500 MG PO BID Prescribed by: DEJA GARBER on 04/14/231906 Dicyclomine HCl (Dicyclomine HCl) 20 Mg Tablet, 20 MG PO Q6H Prescribed by: DEJA GARBER on 04/14/231906 Hydrocodone/Acetaminophen (Hydrocodone-Acetamin 5-325 mg) 5 Mg-325 Mg Tablet, 1 TAB PO Q4H PRN for PAIN-MODERATE (5-7) Prescribed by: OMERO OSHEA on 02/14/231756 Hydrocodone/Acetaminophen (Hydrocodone-Acetamin 5-325 mg) 5 Mg-325 Mg Tablet, 1 TAB PO Q4H PRN for PAIN-MODERATE (5-7) Prescribed by: OMERO OSHEA on 02/15/23 164 Metronidazole (Metronidazole) 500 Mg Tablet, 500 MG PO QID Prescribed by: DEJA GARBER on 04/14/231906 Ondansetron (Ondansetron Odt) 4 Mg Tab.rapdis, 4 MG SL Q4H PRN for NAUSEA/VOMITING Prescribed by: OMERO OSHEA on 02/14/23 175 Ondansetron (Ondansetron Odt) 4 Mg Tab.rapdis, 4 MG SL Q4H PRN for NAUSEA/VOMITING Prescribed by: OMERO OSHEA on 02/15/23 1645 Ondansetron (Ondansetron Odt) 4 Mg Tab.rapdis, 4 MG SL Q4H PRN for NAUSEA/VOMITING Prescribed by: Helen Steven on 04/08/23 144 Ondansetron (Ondansetron Odt) 8 Mg Tab.rapdis, 8 MG PO Q6H Prescribed by: DEJA GARBER on 04/14/231906 Pantoprazole Sodium (Protonix) 40 Mg Tablet.dr, 40 MG PO DAILY Prescribed by: DEJA GARBER on 04/14/231906 Tramadol HCl (Tramadol HCl) 50 Mg Tablet, 50 MG PO Q6H Prescribed by: Helen Steven on 04/08/23 144 Tramadol HCl (Tramadol HCl) 50 Mg Tablet, 50 MG PO Q4H Prescribed by: DEJA GARBER on 04/14/231907 Review of Systems Review of Systems Constitutional: see HPI EENTM: No Symptoms Reported Respiratory: No Symptoms Reported Cardiovascular: No Symptoms Reported Gastrointestinal: See HPI Genitourinary: See HPI Musculoskeletal: no symptoms reported Skin: no symptoms reported Psychiatric/Neurological: No Symptoms Reported Endocrine: No Symptoms Reported Hematologic/Lymphatic: No Symptoms Reported Past Pcwjrut-Ctyiki-Zzycgh Hx Patient Social History Tobacco Use?: No Use of E-Cig and/or Vaping dev: No Substance use?: No Alcohol Use?: No Immunizations Up To Date Influenza Vaccine Up-to-Date: No; Not Current Past Medical History Surgery/Hospitalization HX: DENIES Surgeries: No Respiratory: No Cardiac: No Neurological: No Genitourinary: Yes (NOTED ON CT SCAN) Kidney Stones Gastrointestinal: Yes (MESENTERIC ADENITIS) Colitis Musculoskeletal: No Endocrine: No HEENT: No Cancer: No Psychosocial: No Integumentary: No Blood Disorders: No Physical Exam Vital Signs Vital Signs - First Documented 04/14/23 04/14/23 17:55 22:19 Temp 37.2 Pulse 68 Resp 16 B/P (MAP) 123/77 (92) Pulse Ox 96 O2 Delivery Room Air Capillary Refill : Height/Weight/BMI Height: '" Weight: lbs. oz. kg; 26.00 BMI Method: General Appearance: WD/WN, no apparent distress (BUT LOOKS UNCOMFORTABLE, HOLDING ABDOMEN) HEENT: PERRL/EOMI Neck: normal inspection Respiratory: normal breath sounds, no respiratory distress, no accessory muscle use Cardiovascular: regular rate, rhythm, no murmur Gastrointestinal: soft, abnormal bowel sounds (DECREASED); No distended, No guarding, No rebound; tenderness (DIFFUSE); No hernia, No mass Back: no CVA tenderness Neurologic/Psychiatric: eyelet cutter II-XII nml as tested, no motor/sensory deficits, alert, oriented x 3 Skin: normal color (), warm/dry; No rash Focused Exam Lactate Level 04/14/23 18:08: Lactic Acid Level 0.97 Lactic Acid Level Laboratory Tests Test 04/14/23 18:08 Lactic Acid Level 0.97 MMOL/L (0.50-2.00) Progress/Results/Core Measures Results/Orders Lab Results Laboratory Tests Test 04/14/23 18:08 04/14/23 18:55 Range/Units White Blood Count 10.9 4.3-11.0 10^3/uL Red Blood Count 6.37 H 4.30-5.52 10^6/uL Hemoglobin 18.5 H 13.3-17.7 g/dL Hematocrit 54 40-54 % Mean Corpuscular Volume 85 80-99 fL Mean Corpuscular Hemoglobin 29 25-34 pg Mean Corpuscular Hemoglobin Concent 34 32-36 g/dL Red Cell Distribution Width 12.3 10.0-14.5 % Platelet Count 261 130-400 10^3/uL Mean Platelet Volume 12.7 H 9.0-12.2 fL Immature Granulocyte % (Auto) 0 % Neutrophils (%) (Auto) 70 42-75 % Lymphocytes (%) (Auto) 16 12-44 % Monocytes (%) (Auto) 10 0-12 % Eosinophils (%) (Auto) 3 0-10 % Basophils (%) (Auto) 0 0-10 % Neutrophils # (Auto) 7.6 1.8-7.8 10^3/uL Lymphocytes # (Auto) 1.8 1.0-4.0 10^3/uL Monocytes # (Auto) 1.1 H 0.0-1.0 10^3/uL Eosinophils # (Auto) 0.3 0.0-0.3 10^3/uL Basophils # (Auto) 0.0 0.0-0.1 10^3/uL Immature Granulocyte # (Auto) 0.0 0.0-0.1 10^3/uL Erythrocyte Sedimentation Rate 1 0-15 MM/HR Sodium Level 139 135-145 MMOL/L Potassium Level 3.7 3.6-5.0 MMOL/L Chloride Level 103 98-107 MMOL/L Carbon Dioxide Level 23 21-32 MMOL/L Anion Gap 13 5-14 MMOL/L Blood Urea Nitrogen 8 7-18 MG/DL Creatinine 0.96 0.60-1.30 MG/DL Estimat Glomerular Filtration Rate 115 BUN/Creatinine Ratio 8 Glucose Level 94 70-105 MG/DL Lactic Acid Level 0.97 0.50-2.00 MMOL/L Calcium Level 9.7 8.5-10.1 MG/DL Corrected Calcium 8.5-10.1 MG/DL Magnesium Level 2.6 H 1.6-2.4 MG/DL Total Bilirubin 0.9 0.1-1.0 MG/DL Aspartate Amino Transf (AST/SGOT) 22 5-34 U/L Alanine Aminotransferase (ALT/SGPT) 48 0-55 U/L Alkaline Phosphatase 71 40-136 U/L C-Reactive Protein High Sensitivity 0.04 0.00-0.50 MG/DL Total Protein 7.9 6.4-8.2 GM/DL Albumin 4.9 H 3.2-4.5 GM/DL Amylase Level 46 25-125 U/L Lipase 19 8-78 U/L Urine Color YELLOW Urine Clarity CLEAR Urine pH 6.0 5-9 Urine Specific [place] 1.015 L 1.016-1.022 Urine Protein TRACE H NEGATIVE Urine Glucose (UA) NEGATIVE NEGATIVE Urine Ketones 2+ H NEGATIVE Urine Nitrite NEGATIVE NEGATIVE Urine Bilirubin 1+ H NEGATIVE Urine Urobilinogen 0.2 < = 1.0 MG/DL Urine Leukocyte Esterase NEGATIVE NEGATIVE Urine RBC (Auto) TRACE H NEGATIVE Urine RBC 0-2 /HPF Urine WBC NONE /HPF Urine Squamous Epithelial Cells NONE /HPF Urine Crystals NONE /LPF Urine Bacteria TRACE /HPF Urine Casts NONE /LPF Urine Mucus SMALL H /LPF Urine Culture Indicated NO My Orders Orders - DEJA GARBER DO Ed Iv/Invasive Line Start (04/14/23 18:08) Monitor-Rhythm Ecg Trace Only (04/14/23 18:08) Ct Abdomen/Pelvis W (04/14/23 18:08) Amylase (04/14/23 18:08) Cbc And Automated Diff (04/14/23 18:08) Comprehensive Metabolic Panel (04/14/23 18:08) Hs C Reactive Protein (04/14/23 18:08) Lactic Acid Analyzer (04/14/23 18:08) Lipase (04/14/23 18:08) Magnesium (04/14/23 18:08) Ua Culture If Indicated (04/14/23 18:08) Blood Culture (04/14/23 18:08) Erythrocyte Sedimentation Rate (04/14/23 18:08) Ed Iv/Invasive Line Start (04/14/23 18:08) Lactated Ringers 1,000 Ml (Lactated Ring (04/14/23 18:15) Ondansetron Injection (Ondansetron Inj (04/14/23 18:15) Pantoprazole Injection (Pantoprazole Inj (04/14/23 18:15) Fentanyl Injection (Fentanyl Injection (04/14/23 18:30) Iohexol Injection (Omnipaque 350 Mg/Ml 1 (04/14/23 18:30) Received Contrast (Hold Metformin- Contr (04/14/23 18:30) Ns (Ivpb) 100 Ml (Sodium Chloride 0.9% 1 (04/14/23 18:30) Ed Iv/Invasive Line Start (04/14/23 18:52) Lactated Ringers 1,000 Ml (Lactated Ring (04/14/23 19:00) Ciprofloxacin Iv 400mg/200ml (Ciprofloxa (04/14/23 19:15) Metronidazole 500mg/100ml Ivpb (Metronid (04/14/23 19:15) Rx-Dicyclomine Capsule (Rx-Bentyl Capsul (04/14/23 19:08) Rx-Tramadol Hcl (Rx-Ultram) (04/14/23 19:08) Rx-Ondansetron Po (Rx-Zofran Po) (04/14/23 19:08) Rx-Dicyclomine Capsule (Rx-Bentyl Capsul (04/14/23 21:54) Rx-Ondansetron Po (Rx-Zofran Po) (04/14/23 21:54) Rx-Tramadol Hcl (Rx-Ultram) (04/14/23 21:54) Medications Given in ED Current Medications Medications Dose Ordered Sig/Amalia Route Start Time Stop Time Status Last Admin Dose Admin Ciprofloxacin/ Dextrose 200 ml @ 200 mls/hr ONCE ONCE IV 04/14/23 19:15 04/14/23 20:14 DC 04/14/23 19:37 200 MLS/HR Fentanyl Citrate 50 mcg ONCE ONCE IVP 04/14/23 18:30 04/14/23 18:31 DC 04/14/23 18:29 50 MCG Iohexol 100 ml ONCE ONCE IV 04/14/23 18:30 04/14/23 18:31 DC 04/14/23 18:40 80 ML Lactated Ringer's 1,000 ml @ 0 mls/hr Q0M ONCE IV 04/14/23 18:15 04/14/23 18:16 DC 04/14/23 18:22 0 MLS/HR Lactated Ringer's 1,000 ml @ 0 mls/hr Q0M ONCE IV 04/14/23 19:00 12/8/23 19:01 DC 04/14/23 19:31 0 MLS/HR Metronidazole 100 ml @ 100 mls/hr ONCE ONCE IV 04/14/23 19:15 04/14/23 20:14 DC 04/14/23 20:45 100 MLS/HR Ondansetron HCl 4 mg ONCE ONCE IVP 04/14/23 18:15 04/14/23 18:16 DC 04/14/23 18:22 4 MG Pantoprazole 40 mg ONCE ONCE IV 04/14/23 18:15 04/14/23 18:16 DC 04/14/23 18:23 40 MG Sodium Chloride 100 ml ONCE ONCE IV 04/14/23 18:30 04/14/23 18:31 DC 04/14/23 18:40 80 ML Vital Signs/I&O 04/14/23 04/14/23 04/14/23 17:55 19:11 22:19 Temp 37.2 37.2 Pulse 68 56 Resp 16 14 14 B/P (MAP) 123/77 (92) 116/70 108/75 Pulse Ox 96 O2 Delivery Room Air Room Air Room Air 04/14/23 23:59 Intake Total 2100 ml Balance 2100 ml Blood Pressure Mean: 92 Progress Progress Note : Progress Note VITALS ON ARRIVAL: TEMP 37.2=99.0, HR 68, RR 16, BP 123/77, O2 SAT 99% ON ROOM AIR GIVEN: -IV FLUIDS -ZOFRAN -PROTONIX -FENTANYL -CIPRO -FLAGYL LABS: -CBC WITH WBC 10.9, HGB 18.5, PLT 261,000 -CMP NORMAL -AMYLASE/LIPASE NORMAL -MG 2.6 -CRP 0.04 -SED RATE 1 -LACTIC ACID NORMAL -UA WITH 2+ KETONES, TRACE PROTEIN, TRACE RBC CT ABDOMEN/PELVIS--PERSISTENT COLITIS AND MESENTERIC ADENITIS, SIMILAR TO PREVIOUS. NO DETERIORATION IN PT'S CONDITION DURING ER STAY VITALS STABLE, NO TEMP > 100 NO VOMITING OR DIARRHEA NAUSEA AND PAIN IMPROVED AT DISMISSAL REVIEWED PRIOR RECORDS--2 PRIOR ER VISITS--BOTH FOR THIS COMPLAINT DISCUSSED TEST RESULTS, ANTICIPATED COURSE, SYMPTOMATIC TREATMENT, DIET, MEDICATIONS, NEED FOR FOLLOW UP SCHEDULED AND RETURN PRECAUTIONS Diagnostic Imaging Comments CT ABDOMEN/PELVIS--PER RADIOLOGIST REPORT AT 1903 COMPARISON: CT scan of the abdomen and pelvis with contrast dated 04/08/2023. FINDINGS: The visualized lung bases are clear and stable. Bones show no significant abnormality. The liver, spleen, pancreas, gallbladder and adrenal glands are unremarkable. The previously seen nonobstructive right renal stones are partially obscured by partially excreted contrast. There is no hydronephrosis. There is no stone seen in the ureters. The bladder is fluid-filled and unremarkable. The appendix is unremarkable. There is no intestinal obstruction. The previously seen air and fluid distended loop of jejunum has resolved. The previously seen small bowel fecalization has resolved. There is mild wall thickening involving the duodenum which is nonspecific and contraction may be considered. There are nondilated air-fluid levels seen from the cecum to the distal transverse colon. There is no formed stool seen distal to the fluid within the distal transverse colon. There is decompressed appearance of the sigmoid colon and descending colon. This appearance was also seen on the prior study. Colitis may be a consideration. Stable prominent mesenteric and pericecal lymph nodes. There is no intra-abdominal free air or free fluid. The extra-abdominal and extra soft tissue structures are unremarkable. IMPRESSION: 1: There is persistent wall thickening involving the colon seen from the ascending colon to the rectum. Colitis may be a consideration. There are also nondilated air-fluid levels seen from the cecum to the distal transverse colon. 2: Mesenteric adenitis is again seen. 3: The previously seen fluid filled loop of jejunum and small bowel intestinal fecalization has resolved. 4: The remainder of this exam shows no significant interval change compared to the prior study of comparison. Departure Impression Primary Impression: Colitis Additional Impression: Mesenteric adenitis Disposition: HOME, SELF-CARE Condition: Stable Departure-Patient Inst. Decision time for Depature: 19:04 Referrals: VEDA DONALDSON DO NO,LOCAL PHYSICIAN (PCP) Primary Care Physician Patient Instructions: Colitis (DC), Mesenteric Lymphadenitis (DC) Add. Discharge Instructions: CLEAR LIQUIDS--WATER, BROTH, JELLO, GATORADE IF YOUR PAIN AND NAUSEA IS BETTER, ADD BRATS DIET TO CLEAR LIQUIDS--BANANAS, MORENA E, APPLESAUCE, TOAST, SALTINES KEEP YOUR APPOINTMENT WITH DR. DONALDSON ON MONDAY All discharge instructions reviewed with patient and/or family. Voiced understanding. Scripts Tramadol HCl (Tramadol HCl) 50 Mg Tablet 50 MG PO Q4H for Pain, #20 TAB Prov: DEJA GARBER DO 04/14/23 Ondansetron (Ondansetron Odt) 8 Mg Tab.rapdis 8 MG PO Q6H, #20 TAB Prov: DEJA GARBER DO 04/14/23 Dicyclomine HCl (Dicyclomine HCl) 20 Mg Tablet 20 MG PO Q6H for Abdominal Pain, #20 TAB Prov: DEJA GARBER DO 04/14/23 Pantoprazole Sodium (Protonix) 40 Mg Tablet.dr 40 MG PO DAILY, #15 TAB Prov: DEJA GARBER DO 04/14/23 Metronidazole (Metronidazole) 500 Mg Tablet 500 MG PO QID, #40 TAB Prov: DEJA GARBER DO 04/14/23 Ciprofloxacin HCl (Ciprofloxacin HCl) 500 Mg Tablet 500 MG PO BID, #20 TAB Prov: DEJA GARBER DO 04/14/23 DEJA GARBER DO Apr 14, 2023 18:13
[2023-04-14] MEDS ORDERED: ONDANSETRON INJECTION 4 MG/2 ML (SDV) IVP ONE (18:15)
[2023-04-14] MEDS ORDERED: PANTOPRAZOLE INJECTION 40 MG VIAL IV ONE (18:15)
[2023-04-14] MEDS ORDERED: LACTATED RINGERS 1,000 ML 1,000 ML IV ONE ×2 (18:15→19:00)
[2023-04-14 18:24] LABS: BASOPHILS % (AUTO) 0 % (0-10); EOSINOPHILS # (AUTO) 0.3 10^3/uL (0.0-0.3); EOSINOPHILS % (AUTO) 3 % (0-10); HEMATOCRIT 54 % (40-54); HEMOGLOBIN 18.5 g/dL (13.3-17.7); LYMPHOCYTES # (AUTO) 1.8 10^3/uL (1.0-4.0); LYMPHOCYTES % (AUTO) 16 % (12-44); MEAN CORPUSCULAR HEMOGLOBIN 29 pg (25-34); MEAN CORPUSCULAR HGB CONC 34 g/dL (32-36); MEAN CORPUSCULAR VOLUME 85 fL (80-99); MEAN PLATELET VOLUME 12.7 fL (9.0-12.2); MONOCYTES # (AUTO) 1.1 10^3/uL (0.0-1.0); MONOCYTES % (AUTO) 10 % (0-12); NEUTROPHILS # (AUTO) 7.6 10^3/uL (1.8-7.8); NEUTROPHILS % (AUTO) 70 % (42-75); PLATELET COUNT 261 10^3/uL (130-400); WHITE BLOOD COUNT 10.9 10^3/uL (4.3-11.0)
[2023-04-14] MEDS ORDERED: HOLD METFORMIN - RECEIVED CONTRAST 20 ML VIAL IV SCH (18:30)
[2023-04-14] MEDS ORDERED: fentaNYL INJECTION 100 MCG/2 ML VIAL IVP ONE (18:30)
[2023-04-14] MEDS ORDERED: NS 100 ML (IVPB) BAG IV ONE (18:30)
[2023-04-14] MEDS ORDERED: IOHEXOL 350 MG/ML 100 ML (OMNIPAQUE 350) VIAL IV ONE (18:30)
[2023-04-14 18:31] LABS: ALBUMIN 4.9 GM/DL (3.2-4.5); CHLORIDE 103 MMOL/L (98-107); POTASSIUM 3.7 MMOL/L (3.6-5.0); SODIUM 139 MMOL/L (135-145)
[2023-04-14 18:32] LABS: CALCIUM 9.7 MG/DL (8.5-10.1)
[2023-04-14 18:33] LABS: AMYLASE 46 U/L (25-125)
[2023-04-14 18:34] LABS: GLUCOSE 94 MG/DL (70-105); TOTAL PROTEIN 7.9 GM/DL (6.4-8.2)
[2023-04-14 18:35] LABS: BILIRUBIN,TOTAL 0.9 MG/DL (0.1-1.0); CARBON DIOXIDE 23 MMOL/L (21-32)
[2023-04-14 18:37] LABS: ALKALINE PHOSPHATASE 71 U/L (40-136); CREATININE SERUM 0.96 MG/DL (0.60-1.30); GFR ESTIMATED 115
[2023-04-14 18:39] LABS: BUN/CREATININE RATIO 8
[2023-04-14 18:40] LABS: ALANINE AMINOTRANSFERASE 48 U/L (0-55); MAGNESIUM 2.6 MG/DL (1.6-2.4)
[2023-04-14 18:41] LABS: LIPASE 19 U/L (8-78)
[2023-04-14 18:56] LABS: ERYTHROCYTE SEDIMENTATION RATE 1 MM/HR (0-15)
--- NOTE | 2023-04-14 18:58 | Diagnostic Imaging Report ---
CLINICAL INDICATION: Patient complains of abdominal pain with vomiting that started 2 months ago. Pain is getting worse and increased over 3 days ago. Patient diagnosed with colitis and mesenteric adenitis recently and was prescribed antibiotics. EXAM: Axial CT scan of the abdomen and pelvis performed with 80 mL of Omnipaque 350 IV contrast. Sagittal and coronal reformatted images were created. Auto Exposure Controls were utilized during the CT exam to meet ALARA standards for radiation dose reduction. COMPARISON: CT scan of the abdomen and pelvis with contrast dated 04/08/2023. FINDINGS: The visualized lung bases are clear and stable. Bones show no significant abnormality. The liver, spleen, pancreas, gallbladder and adrenal glands are unremarkable. The previously seen nonobstructive right renal stones are partially obscured by partially excreted contrast. There is no hydronephrosis. There is no stone seen in the ureters. The bladder is fluid-filled and unremarkable. The appendix is unremarkable. There is no intestinal obstruction. The previously seen air and fluid distended loop of jejunum has resolved. The previously seen small bowel fecalization has resolved. There is mild wall thickening involving the duodenum which is nonspecific and contraction may be considered. There are nondilated air-fluid levels seen from the cecum to the distal transverse colon. There is no formed stool seen distal to the fluid within the distal transverse colon. There is decompressed appearance of the sigmoid colon and descending colon. This appearance was also seen on the prior study. Colitis may be a consideration. Stable prominent mesenteric and pericecal lymph nodes. There is no intra-abdominal free air or free fluid. The extra-abdominal and extra soft tissue structures are unremarkable. IMPRESSION: 1: There is persistent wall thickening involving the colon seen from the ascending colon to the rectum. Colitis may be a consideration. There are also nondilated air-fluid levels seen from the cecum to the distal transverse colon. 2: Mesenteric adenitis is again seen. 3: The previously seen fluid filled loop of jejunum and small bowel intestinal fecalization has resolved. 4: The remainder of this exam shows no significant interval change compared to the prior study of comparison. Dictated by: Dictated on workstation # [id number]
[2023-04-14] MEDS ORDERED: DICY20TA PO (19:07)
[2023-04-14] MEDS ORDERED: METR-145 PO (19:07)
[2023-04-14] MEDS ORDERED: CIPR500T5 PO (19:07)
[2023-04-14] MEDS ORDERED: PANT40TA2 PO (19:07)
[2023-04-14] MEDS ORDERED: TRAM50TA3 PO (19:07)
[2023-04-14] MEDS ORDERED: ONDA8TAB13 PO (19:07)
[2023-04-14] MEDS ORDERED: RX-ONDANSETRON 4 MG ODT (ZOFRAN) PPK #4 PO STA (19:08)
[2023-04-14] MEDS ORDERED: RX-DICYCLOMINE 10 MG (BENTYL) CAP PPK#4 PO STA (19:08)
[2023-04-14 19:09] LABS: BACTERIA,URINE TRACE /HPF; CLARITY,URINE CLEAR; COLOR,URINE YELLOW; GLUCOSE, URINE (UA) NEGATIVE (NEGATIVE); KETONES,URINE 2+ (NEGATIVE); LEUKOCYTE ESTERASE ,URINE NEGATIVE (NEGATIVE); NITRITE,URINE NEGATIVE (NEGATIVE); PROTEIN,URINE TRACE (NEGATIVE); RBC,URINE 0-2 /HPF
[2023-04-14 19:10] LABS: BILIRUBIN,URINE 1+ (NEGATIVE)
[2023-04-14] MEDS ORDERED: metroNIDAZOLE 500MG/100ML IVPB 100 ML IV ONE (19:15)
[2023-04-14] MEDS ORDERED: CIPROFLOXACIN IV 400MG/200ML 200 ML IV ONE (19:15)
[2023-04-14] MEDS ORDERED: RX-ONDANSETRON 4 MG ODT (ZOFRAN) PPK #4 ONE (21:54)
[2023-04-14] MEDS ORDERED: RX-DICYCLOMINE 10 MG (BENTYL) CAP PPK#4 PO ONE (21:54)
[2023-04-14 22:19] VITALS: BP 108/75
== END 2023-04-14 22:19 | disposition home or self-care (01) ==
LOC: EDUNIT# 17:39 → ER 17:43
DX: K52.9 Noninfective gastroenteritis and colitis, unspecified (principal); I88.0 Nonspecific mesenteric lymphadenitis
CPT/HCPCS: 36415; 74177; 80053; 81000; 82150; 83605; 83690; 83735; 85025; 85652; 86141; 87040